=== PATIENT | female | born 1960 | race Caucasian/White ===

== ENCOUNTER 2021-04-05 16:48 | Inpatient (IN) ==
[2021-04-05 18:59] LABS: ABS Eosinophils 0.1 10^3/ul (0-0.6); ABS Lymphocytes 1.8 10^3/ul (1.0-4.8); ABS Monocytes 0.4 10^3/ul (0-0.8); ABS Neutrophils 4.9 10^3/ul (1.5-7.7); Eosinophil % 0.7 %; Hematocrit 38 % (35-47); Hemoglobin 12.5 g/dL (12.0-16.0); Mean Corpuscular HGB Conc 33 g/dL (31-36); Mean Corpuscular Hemoglobin 26 pg (27-31); Mean Corpuscular Volume 79 fL (80-97); Mean Platelet Volume 9.2 fL (7.4-10.4); Nucleated Red Blood Cells % 0.1; Platelet Count 247 10^3/uL (150-450); Red Blood Count 4.79 10^6 /uL (3.70-4.87); Red Cell Distribution Width 17 % (10-15); White Blood Count 7.3 10^3/uL (3.5-10.8)
[2021-04-05 19:10] LABS: Urine Appearance Clear; Urine Bilirubin Negative (Negative); Urine Blood Negative (Negative); Urine Color Yellow; Urine Glucose Negative (Negative); Urine Ketones Negative (Negative); Urine Nitrite Negative (Negative); Urine Protein Negative (Negative); Urine Specific Gravity 1.009 (1.002-1.030); Urine Urobilinogen Negative (Negative)
[2021-04-05 19:16] LABS: ALT 6 U/L (7-52); AST 11 U/L (13-39); Albumin 3.8 g/dL (3.2-5.2); Albumin/Globulin Ratio 1.7 (1-3); Alkaline Phosphatase 64 U/L (35-149); Anion Gap 6 mmol/L (2-11); Blood Urea Nitrogen 8 mg/dL (6-24); CO2 Carbon Dioxide 30 mmol/L (22-32); Calcium 8.8 mg/dL (8.6-10.3); Chloride 103 mmol/L (101-111); EGFR African American 90.6 (>60); EGFR Non-African American 74.8 (>60); Globulin 2.3 g/dL (2-4); Glucose 103 mg/dL (70-100); Potassium 2.9 mmol/L (3.5-5.0); Sodium 139 mmol/L (135-145); Total Protein 6.1 g/dL (6.4-8.9)
[2021-04-05 19:23] LABS: Urine Benzodiazepine Screen None Detected (None Detect); Urine Cannabinoids Screen Presumptive Positive (None Detect); Urine Opiates Screen None Detected (None Detect)
[2021-04-05] MEDS ORDERED: Potassium Chlor 20 meq TAB.ER PO ONE (19:23)
[2021-04-05 19:30] LABS: Acetaminophen < 15 mcg/mL; Alcohol, S < 10 mg/dL (<10); Salicylate < 2.50 mg/dL (<30)
[2021-04-05 19:44] LABS: TSH Ultra Thyroid Stim Horm 0.73 mcIU/mL (0.34-5.60)
[2021-04-06] MEDS ORDERED: Al Hydrox/Mg Hydrox/Simet LIQ 30 ML UDC PO PRN (00:27)
[2021-04-06] MEDS ORDERED: Potassium Chlor 20 meq TAB.ER PO ONE (01:01)
[2021-04-06] MEDS: Vitamin THERAPEUTIC TAB PO SCH (13:02)
[2021-04-06] MEDS ORDERED: Clindamycin 1% TOPICAL(NF) 60 PAD BOX TOPICAL PRN (14:36)
[2021-04-06] MEDS ORDERED: Rizatriptan 5 mg TAB (NF) PO PRN (14:45)
[2021-04-06] MEDS ORDERED: SUMAtriptan Subcut 6 MG/0.5 ML VIAL SUBCUT PRN (14:46)
[2021-04-06] MEDS ORDERED: Albuterol HFA INHALER 8 gm MDI INH PRN (14:47)
[2021-04-06] MEDS: Carboxymethylcellulos 1% OPTH 1 AMP BOTH EYES SCH ×2 (15:50→21:08)
[2021-04-06] MEDS ORDERED: Lidocaine PATCH 5% PATCH TRANSDERM PRN (16:18)
[2021-04-06] MEDS ORDERED: Lidocaine Patch REMOVE PATCH PATCH OFF PRN (21:00)
[2021-04-06] MEDS: Artificial Tear OPHTH.OINT 3.5 GM BOTH EYES SCH (21:08)
[2021-04-06] MEDS: Clotrimazole 1% VAGINAL CREAM 45 GM VAGINAL SCH (21:08)
[2021-04-07] MEDS: Vitamin THERAPEUTIC TAB PO SCH (08:59)
[2021-04-07] MEDS ORDERED: Cyanocobalamin INJ 1,000 MCG/ML VIAL 1 ML VIAL IM SCH (09:00)
[2021-04-07] MEDS: DULoxetine DR 30 mg CAP PO SCH (09:00)
[2021-04-07] MEDS: Cholecalciferol (VIT D3) 1,000 unit TAB PO SCH (09:00)
[2021-04-07] MEDS: Carboxymethylcellulos 1% OPTH 1 AMP BOTH EYES SCH ×4 (09:02→20:26)
[2021-04-07 09:06] LABS: HDL Cholesterol 56.3 mg/dL; Potassium 3.6 mmol/L (3.5-5.0)
[2021-04-07 15:31] LABS: % Iron Saturation 6 % (15-55); Iron 27 ug/dL (50-212); Total Iron Binding Capacity 424 mcg/dL (250-450); Transferrin 303 mg/dL (203-362); Unsaturated Iron Binding < 409 ug/dL
[2021-04-07] MEDS: Riboflavin (B2) 100 mg TAB(NF) PO SCH (20:21)
[2021-04-07] MEDS: CMCS: Doxepin 25 mg CAP (NF) PO SCH (20:23)
[2021-04-07] MEDS: Clotrimazole 1% VAGINAL CREAM 45 GM VAGINAL SCH (21:23)
[2021-04-07] MEDS: Artificial Tear OPHTH.OINT 3.5 GM BOTH EYES SCH (21:23)
[2021-04-08] MEDS: Riboflavin (B2) 100 mg TAB(NF) PO SCH (09:26)
[2021-04-08] MEDS: Carboxymethylcellulos 1% OPTH 1 AMP BOTH EYES SCH ×4 (09:27→20:23)
[2021-04-08] MEDS: DULoxetine DR 30 mg CAP PO SCH (09:28)
[2021-04-08] MEDS: Cholecalciferol (VIT D3) 1,000 unit TAB PO SCH (09:28)
[2021-04-08] MEDS: Vitamin THERAPEUTIC TAB PO SCH (09:30)
[2021-04-08] MEDS: Sulfamethox/Trimethoprim DS TAB 800/160 mg PO SCH (16:06)
[2021-04-08] MEDS: Clotrimazole 1% VAGINAL CREAM 45 GM VAGINAL SCH (20:16)
[2021-04-08] MEDS: CMCS: Doxepin 25 mg CAP (NF) PO SCH (20:17)
[2021-04-08] MEDS: Artificial Tear OPHTH.OINT 3.5 GM BOTH EYES SCH (22:01)
[2021-04-09] MEDS: Vitamin THERAPEUTIC TAB PO SCH (08:56)
[2021-04-09] MEDS: DULoxetine DR 30 mg CAP PO SCH (08:56)
[2021-04-09] MEDS: Riboflavin (B2) 100 mg TAB(NF) PO SCH (08:58)
[2021-04-09] MEDS: Sulfamethox/Trimethoprim DS TAB 800/160 mg PO SCH (08:59)
[2021-04-09] MEDS: Carboxymethylcellulos 1% OPTH 1 AMP BOTH EYES SCH (09:01)
[2021-04-09 09:43] VITALS: BP 154/102
[2021-04-09] MEDS ORDERED: Albuterol HFA INHALER 8 gm MDI INH PRN (11:59)
[2021-04-09] MEDS ORDERED: Carboxymethylcellulos 1% OPTH 1 AMP BOTH EYES SCH (13:00)
[2021-04-09] MEDS ORDERED: Carboxymethylcellulose/Glyceri 10 ML OPHTH.GEL lubricant eye gel BOTH EYES SCH (13:00)
[2021-04-10] MEDS ORDERED: DULoxetine DR 30 mg CAP PO SCH (09:00)
== END 2021-04-09 16:30 | disposition home or self-care (01) ==
LOC: ED 16:48 → BSU 04-06 00:15
PROVIDERS: ADMIT Psychiatry & Neurology Psychiatry; ATTEND Psychiatry & Neurology Psychiatry

== ENCOUNTER 2021-04-10 11:55 | Inpatient (IN) ==
[2021-04-10] MEDS ORDERED: Tetan/Diph/Pertus SYR(Tdap) 0.5 ML SYR(BOOSTRIX) use SYR contains LATEX IM ONE (12:01)
[2021-04-10 13:27] LABS: ABS Eosinophils 0.1 10^3/ul (0-0.6); ABS Lymphocytes 1.6 10^3/ul (1.0-4.8); ABS Monocytes 0.3 10^3/ul (0-0.8); ABS Neutrophils 4.4 10^3/ul (1.5-7.7); Eosinophil % 0.9 %; Hematocrit 38 % (35-47); Hemoglobin 12.4 g/dL (12.0-16.0); Lymphocyte % 24.4 %; Mean Corpuscular HGB Conc 33 g/dL (31-36); Mean Corpuscular Hemoglobin 26 pg (27-31); Mean Corpuscular Volume 79 fL (80-97); Platelet Count 295 10^3/uL (150-450); Red Blood Count 4.78 10^6 /uL (3.70-4.87); Red Cell Distribution Width 17 % (10-15); White Blood Count 6.4 10^3/uL (3.5-10.8)
[2021-04-10 13:44] LABS: Albumin 3.8 g/dL (3.2-5.2); Anion Gap 8 mmol/L (2-11); CO2 Carbon Dioxide 26 mmol/L (22-32); Chloride 107 mmol/L (101-111); Potassium 3.5 mmol/L (3.5-5.0); Sodium 141 mmol/L (135-145)
[2021-04-10 13:50] LABS: ALT 10 U/L (7-52); AST 14 U/L (13-39); Albumin/Globulin Ratio 1.5 (1-3); Alkaline Phosphatase 68 U/L (35-149); Blood Urea Nitrogen 7 mg/dL (6-24); EGFR African American 96.2 (>60); EGFR Non-African American 79.5 (>60); Globulin 2.5 g/dL (2-4); Glucose 94 mg/dL (70-100); Total Protein 6.3 g/dL (6.4-8.9)
[2021-04-10 13:54] LABS: Urine Appearance Clear; Urine Bilirubin Negative (Negative); Urine Blood 2+ (Negative); Urine Color Yellow; Urine Glucose Negative (Negative); Urine Ketones Trace (Negative); Urine Nitrite Negative (Negative); Urine Protein Negative (Negative); Urine Specific Gravity 1.013 (1.002-1.030); Urine Urobilinogen Negative (Negative)
[2021-04-10 13:58] LABS: Acetaminophen < 15 mcg/mL; Alcohol, S < 10 mg/dL (<10); Salicylate < 2.50 mg/dL (<30)
[2021-04-10 13:58] LABS: Urine Benzodiazepine Screen None Detected (None Detect); Urine Cannabinoids Screen Presumptive Positive (None Detect); Urine Opiates Screen None Detected (None Detect)
[2021-04-10 14:05] LABS: Urine Bacteria Absent (Absent); Urine Red Blood Cell 1+(3-5/hpf) (Absent); Urine Squamous Epithelial Cell Present (Absent); Urine White Blood Cell Absent (Absent)
[2021-04-10 14:12] LABS: TSH Ultra Thyroid Stim Horm 0.62 mcIU/mL (0.34-5.60)
[2021-04-10] MEDS ORDERED: Lidocaine/Epineph/Tetraca GEL 3 ML GEL IN SYR TOPICAL ONE (15:56)
[2021-04-10] MEDS ORDERED: Bacitracin OINTMENT TUBE TOPICAL ONE (17:31)
[2021-04-10] MEDS ORDERED: Lidocaine 2% JELLY 5 ML TUBE LIDO2GEL7 TOPICAL ONE (19:00)
[2021-04-10] MEDS: RIBOFLAVIN 100 MG PO SCH (20:56)
[2021-04-10] MEDS: CMCS:Doxepin 25 mg CAP (NF) PO SCH (20:56)
[2021-04-11 07:35] LABS: HDL Cholesterol 62.3 mg/dL
[2021-04-11] MEDS: Sulfamethox/Trimethoprim DS TAB 800/160 mg PO SCH (08:49)
[2021-04-11] MEDS: DULoxetine DR 30 mg CAP PO SCH (08:49)
[2021-04-11] MEDS: RIBOFLAVIN 100 MG PO SCH (08:50)
[2021-04-11] MEDS: Vitamin THERAPEUTIC TAB PO SCH (08:51)
[2021-04-11] MEDS: carBAMazepine ER 100mg TAB PO SCH ×2 (14:05→21:01)
[2021-04-11] MEDS: CMCS:Doxepin 25 mg CAP (NF) PO SCH (21:02)
[2021-04-12] MEDS: carBAMazepine ER 100mg TAB PO SCH ×2 (08:34→20:26)
[2021-04-12] MEDS: DULoxetine DR 30 mg CAP PO SCH (08:36)
[2021-04-12] MEDS: RIBOFLAVIN 100 MG PO SCH (08:37)
[2021-04-12] MEDS: Sulfamethox/Trimethoprim DS TAB 800/160 mg PO SCH (08:38)
[2021-04-12] MEDS: Vitamin THERAPEUTIC TAB PO SCH (08:38)
[2021-04-12] MEDS: CMCS:Doxepin 25 mg CAP (NF) PO SCH (20:28)
[2021-04-13] MEDS: DULoxetine DR 30 mg CAP PO SCH (09:29)
[2021-04-13] MEDS: carBAMazepine ER 100mg TAB PO SCH ×2 (09:29→20:50)
[2021-04-13] MEDS: RIBOFLAVIN 100 MG PO SCH (09:30)
[2021-04-13] MEDS: Sulfamethox/Trimethoprim DS TAB 800/160 mg PO SCH (09:30)
[2021-04-13] MEDS: Vitamin THERAPEUTIC TAB PO SCH (09:30)
[2021-04-13] MEDS: CMCS:Doxepin 25 mg CAP (NF) PO SCH (20:50)
[2021-04-13] MEDS ORDERED: Al Hydrox/Mg Hydrox/Simet LIQ 30 ML UDC PO PRN (21:01)
[2021-04-14] MEDS: DULoxetine DR 30 mg CAP PO SCH (09:22)
[2021-04-14] MEDS: Vitamin THERAPEUTIC TAB PO SCH (09:22)
[2021-04-14] MEDS: Sulfamethox/Trimethoprim DS TAB 800/160 mg PO SCH (09:26)
[2021-04-14] MEDS: RIBOFLAVIN 100 MG PO SCH (09:26)
[2021-04-14] MEDS: carBAMazepine ER 100mg TAB PO SCH (09:27)
[2021-04-14] MEDS: CMCS:Doxepin 25 mg CAP (NF) PO SCH (20:42)
[2021-04-15] MEDS: DULoxetine DR 30 mg CAP PO SCH (08:32)
[2021-04-15] MEDS: Vitamin THERAPEUTIC TAB PO SCH (08:32)
[2021-04-15] MEDS: Sulfamethox/Trimethoprim DS TAB 800/160 mg PO SCH (08:33)
[2021-04-15] MEDS: RIBOFLAVIN 100 MG PO SCH (08:33)
[2021-04-15] MEDS: CMC:Doxepin 25 mg CAP (NF) PO SCH (21:28)
[2021-04-16] MEDS: RIBOFLAVIN 100 MG PO SCH (09:22)
[2021-04-16] MEDS: Vitamin THERAPEUTIC TAB PO SCH (09:23)
[2021-04-16] MEDS: DULoxetine DR 30 mg CAP PO SCH (09:23)
[2021-04-16] MEDS: Sulfamethox/Trimethoprim DS TAB 800/160 mg PO SCH (09:23)
[2021-04-16] MEDS: Carboxymethylcellulos 1% OPTH 1 AMP BOTH EYES SCH ×2 (16:33→20:52)
[2021-04-16] MEDS: CMC:Doxepin 25 mg CAP (NF) PO SCH (20:55)
[2021-04-17] MEDS: DULoxetine DR 30 mg CAP PO SCH (09:02)
[2021-04-17] MEDS: Vitamin THERAPEUTIC TAB PO SCH (09:02)
[2021-04-17] MEDS: Carboxymethylcellulos 1% OPTH 1 AMP BOTH EYES SCH ×4 (09:03→22:24)
[2021-04-17] MEDS: Sulfamethox/Trimethoprim DS TAB 800/160 mg PO SCH (09:05)
[2021-04-17] MEDS: RIBOFLAVIN 100 MG PO SCH (11:03)
[2021-04-17] MEDS: CMC:Doxepin 25 mg CAP (NF) PO SCH (22:27)
[2021-04-18] MEDS: Carboxymethylcellulos 1% OPTH 1 AMP BOTH EYES SCH ×4 (09:51→22:09)
[2021-04-18] MEDS: DULoxetine DR 30 mg CAP PO SCH (09:54)
[2021-04-18] MEDS: RIBOFLAVIN 100 MG PO SCH (09:57)
[2021-04-18] MEDS: Sulfamethox/Trimethoprim DS TAB 800/160 mg PO SCH (09:58)
[2021-04-18] MEDS: Vitamin THERAPEUTIC TAB PO SCH (09:58)
[2021-04-18] MEDS: CMC:Doxepin 25 mg CAP (NF) PO SCH (22:10)
[2021-04-19] MEDS: Vitamin THERAPEUTIC TAB PO SCH (09:03)
[2021-04-19] MEDS: DULoxetine DR 30 mg CAP PO SCH (09:03)
[2021-04-19] MEDS: Carboxymethylcellulos 1% OPTH 1 AMP BOTH EYES SCH ×4 (09:04→19:57)
[2021-04-19] MEDS: RIBOFLAVIN 100 MG PO SCH (09:06)
[2021-04-19] MEDS: Sulfamethox/Trimethoprim DS TAB 800/160 mg PO SCH (09:07)
[2021-04-19] MEDS: CMC:Doxepin 25 mg CAP (NF) PO SCH (20:00)
[2021-04-20] MEDS: DULoxetine DR 30 mg CAP PO SCH (08:45)
[2021-04-20] MEDS: Vitamin THERAPEUTIC TAB PO SCH (08:46)
[2021-04-20] MEDS: Carboxymethylcellulos 1% OPTH 1 AMP BOTH EYES SCH ×4 (08:48→21:56)
[2021-04-20] MEDS: RIBOFLAVIN 100 MG PO SCH (08:48)
[2021-04-20] MEDS: Sulfamethox/Trimethoprim DS TAB 800/160 mg PO SCH ×2 (08:50→09:10)
[2021-04-20] MEDS: CMC:Doxepin 25 mg CAP (NF) PO SCH (21:56)
[2021-04-21] MEDS: RIBOFLAVIN 100 MG PO SCH (09:05)
[2021-04-21] MEDS: Carboxymethylcellulos 1% OPTH 1 AMP BOTH EYES SCH ×4 (09:06→20:32)
[2021-04-21] MEDS: Vitamin THERAPEUTIC TAB PO SCH (09:06)
[2021-04-21] MEDS: DULoxetine DR 30 mg CAP PO SCH (09:07)
[2021-04-21] MEDS: Sulfamethox/Trimethoprim DS TAB 800/160 mg PO SCH (09:09)
[2021-04-21] MEDS: CMC:Doxepin 25 mg CAP (NF) PO SCH (20:34)
[2021-04-22] MEDS: Carboxymethylcellulos 1% OPTH 1 AMP BOTH EYES SCH ×4 (08:37→20:16)
[2021-04-22] MEDS: DULoxetine DR 30 mg CAP PO SCH (08:40)
[2021-04-22] MEDS: Vitamin THERAPEUTIC TAB PO SCH (08:40)
[2021-04-22] MEDS: Sulfamethox/Trimethoprim DS TAB 800/160 mg PO SCH (08:40)
[2021-04-22] MEDS: RIBOFLAVIN 100 MG PO SCH (08:41)
[2021-04-22] MEDS: CMC:Doxepin 25 mg CAP (NF) PO SCH (20:15)
[2021-04-23 08:08] VITALS: BP 146/94
[2021-04-23] MEDS: RIBOFLAVIN 100 MG PO SCH (08:11)
[2021-04-23] MEDS: DULoxetine DR 30 mg CAP PO SCH (08:11)
[2021-04-23] MEDS: Sulfamethox/Trimethoprim DS TAB 800/160 mg PO SCH (08:12)
[2021-04-23] MEDS: Vitamin THERAPEUTIC TAB PO SCH (08:12)
[2021-04-23] MEDS: Carboxymethylcellulos 1% OPTH 1 AMP BOTH EYES SCH (08:14)
== END 2021-04-23 09:15 | disposition home or self-care (01) | DRG 885 ==
LOC: ED 11:55 → BSU 16:28
PROVIDERS: ADMIT Psychiatry & Neurology Psychiatry; ATTEND Psychiatry & Neurology Psychiatry